=== PATIENT | female | born 1985 | race American Indian/Alaskan Native ===

== ENCOUNTER 2017-05-08 11:01 | Emergency (ER) | payer OTHER ==
[2017-05-08 11:31] VITALS: O2SAT 100; BMI 28.3
--- NOTE | 2017-05-08 11:46 | ED PDOC ---
Arrival/HPI - General Historian: Patient - General Chief Complaint: ENT Problem Time Seen by Provider: 05/08/17 11:21 - History of Present Illness Narrative History of Present Illness (Text): 05/08/17 11:42PM Patient is a 32 year old female with no past medical history who presents complaining of generalized symptoms of headache, abdominal discomfort, cough and fever. The patient is a poor historian and is noted to have selected cooperation throughout the interview. The patient reports developing a dry cough and sore throat for the past few days. She has had recent travel to [place] for vacation but denies any exposure to ticks, mosquitos or inesect bites. She does have sick contacts for which complain of the same symptoms of sore throat and mild cough. Pt does not report a productive cough. Patient indicates that she was previously seen at an urgent care prior to arrival in emergency department and had a recorded temperature of 102.4F. She denies fever or subjective fever through out her illness. Pt also complains of dizziness today but is only able to provide vague descriptors of her dizziness. She reports she gets dizzy when she stands up too quickly the past few days and denies any loss of consciousness or syncope. Pt denies chest pain, shortness of breath, chills, neck pain/stiffness and skin rash. (Piyush Lamb) Past Medical History - Provider Review Nursing Documentation Reviewed: Yes - Travel History Have you recently traveled outside [place] w/in the past 3 mons?: Yes If Yes, travel location?: [place] - Past History Past History: No Previous - Infectious Disease Hx of Infectious Diseases: None - Past Medical History Past Medical History: No Previous Family/Social History - Physician Review Nursing Documentation Reviewed: Yes Family/Social History: No Known Family HX Allergies/Home Meds Allergies/Adverse Reactions: Allergies amoxicillin Adverse Reaction (Verified 05/08/17 12:00) RASH morphine Adverse Reaction (Verified 05/08/17 11:59) VOMITING Home Medications: Home Meds Medication Instructions Recorded Confirmed Phenylephrine/Dm/Acetaminop/GG 05/08/17 [Vicks Dayquil Severe Cold-Flu] Review of Systems - Review of Systems Constitutional: Fevers. absent: Weight Change Eyes: Photophobia (chronic) ENT: absent: Hearing Changes, Tinnitus Respiratory: Cough. absent: SOB, Wheezing Cardiovascular: absent: Chest Pain, Palpitations Gastrointestinal: Diarrhea (x 2 days). absent: Abdominal Pain Genitourinary Female: absent: Dysuria, Frequency Musculoskeletal: Myalgias Skin: Normal Endocrine: Diaphoresis. absent: Polyuria Psychiatric: absent: Anxiety, Depression Physical Exam Vital Signs Reviewed: Yes Temperature: Afebrile Blood Pressure: Normal Pulse: Regular Respiratory Rate: Normal Appearance: Positive for: Well-Appearing Pain Distress: None Mental Status: Positive for: Alert and Oriented X 3 - Systems Exam Head: Present: Atraumatic, Normocephalic Pupils: Present: PERRL Extroacular Muscles: Present: EOMI Conjunctiva: Present: Normal Mouth: Present: Moist Mucous Membranes Pharnyx: Present: ERYTHEMA. No: EXUDATE, Peritonsilar Swelling Neck: Present: Normal Range of Motion, Paraspinal Tenderness. No: Meningeal Signs, MIDLINE TENDERNESS Respiratory/Chest: Present: Clear to Auscultation, Good Air Exchange. No: Respiratory Distress, Accessory Muscle Use Cardiovascular: Present: Regular Rate and Rhythm, Normal S1, S2. No: Murmurs Abdomen: Present: Tenderness (diffuse minimal), Normal Bowel Sounds. No: Distention, Peritoneal Signs Upper Extremity: Present: Normal Inspection. No: Cyanosis, Edema Lower Extremity: Present: Normal Inspection. No: Edema Neurological: Present: GCS=15, CN II-XII Intact, Speech Normal Skin: Present: Warm, Dry, Normal Color, Diaphoretic. No: Rashes Psychiatric: Present: Alert, Oriented x 3, Normal Insight, Normal Concentration Medical Decision Making - Lab Interpretations I have reviewed the lab results: Yes - EKG Interpretation Interpreted by ED Physician: Yes Type: 12 lead EKG ED Course and Treatment: 05/08/17 13:32 Impression: - Patient is a 32 year old female with no past medical history who complains of sore throat, headache, and fever for the past 5 days. Differential Diagnosis included but are not limited to: - Viral URI - Migraine Plan: - CBC, CMP, Urinalysis, Test - EKG - Motrin, Meclizine, IVF - Reassess and disposition Progress Notes: Piyush Lebron) - Lab Interpretations Lab Results: 05/08/17 12:30 05/08/17 12:30 Lab Results 05/08/17 13:10: Urine Color Yellow, Urine Appearance Clear, Urine pH 7.5, Ur Specific [place] 1.015, Urine Protein Negative, Urine Glucose (UA) Negative, Urine Ketones Negative, Urine Blood Negative, Urine Nitrate Negative, Urine Bilirubin Negative, Urine Urobilinogen 0.2, Ur Leukocyte Esterase Negative 05/08/17 12:30: Sodium 135, Potassium 3.8, Chloride 100, Carbon Dioxide 26, Anion Gap 13, BUN 8, Creatinine 0.8, Est GFR ( Amer) > 60, Est GFR (Non- Af Amer) > 60, Random Glucose 89, Calcium 9.4, Total Bilirubin 0.8, AST 47 H, ALT 70 H, Alkaline Phosphatase 94, Total Protein 8.3, Albumin 4.4, Globulin 3.9 , Albumin/Globulin Ratio 1.1, Lipase 43 05/08/17 12:30: WBC 6.3, RBC 4.43, Hgb 13.0, Hct 39.4, MCV 88.9, MCH 29.3, MCHC 33.0, RDW 13.0, Plt Count 262, MPV 9.3, Gran % 79.5 H, Lymph % (Auto) 10.1 L, [place] % (Auto) 10.0 H, Eos % (Auto) 0.2 L, Baso % (Auto) 0.2, Gran # 5.02, Lymph # 0.6 L, [place] # 0.6, Eos # 0.0, Baso # 0.01 - Medication Orders Current Medication Orders: Discontinued Medications Sodium Chloride (Sodium Chloride 0.9%) 1,000 mls @ 250 mls/hr IV .Q4H ONE Stop: 05/08/17 16:09 Last Admin: 05/08/17 12:54 Dose: 250 mls/hr Ibuprofen (Motrin Tab) 600 mg PO STAT STA Stop: 05/08/17 12:04 Last Admin: 05/08/17 12:56 Dose: 600 mg Meclizine HCl (Antivert) 25 mg PO STAT STA Stop: 05/08/17 12:11 Last Admin: 05/08/17 12:30 Dose: 25 mg - PA / BILINGUAL RECRUITER / Resident Statement / has reviewed & agrees with the documentation as recorded. / has examined the patient and agrees with the treatment plan. Disposition/Present on Arrival - Present on Arrival Any Indicators Present on Arrival: No History of DVT/PE: No History of Uncontrolled Diabetes: No Urinary Catheter: No History of Decub. Ulcer: No - Disposition Have Diagnosis and Disposition been Completed?: Yes Disposition Time: 13:40 Patient Plan: Discharge - Disposition Diagnosis: Viral upper respiratory illness Disposition: HOME/ ROUTINE Condition: GOOD Prescriptions: Benzonatate [Tessalon Perles] 100 mg PO TID #15 sgl Referrals: Dalia Hampton, [Primary Care Provider] - Follow up with primary Forms: WORK NOTE
[2017-05-08] MEDS ORDERED: Sodium Chloride 0.9% 1,000 ML IV ONE (12:10)
[2017-05-08 12:48] LABS: BASO # 0.01 K/mm3 (0.0-2.0); BASO % 0.2 % (0.0-3.0); EOS % 0.2 % (1.5-5.0); GRAN # 5.02 (1.4-6.5); GRAN % 79.5 % (50.0-68.0); LYMPH # 0.6 (1.2-3.4); LYMPH % 10.1 % (22.0-35.0); MEAN CELL VOLUME 88.9 fL (80.0-105.0); MEAN CORPUSCULAR HEMOGLOBIN 29.3 pg (25.0-35.0); MEAN PLATELET VOLUME 9.3 fl (7.0-11.0); MONO # 0.6 (0.1-0.6); PLATELET COUNT 262 10^3/uL (120.0-450.0); RBC 4.43 10^6/uL (3.5-6.1); WHITE BLOOD COUNT 6.3 10^3/ul (4.5-11.0)
[2017-05-08 12:57] LABS: ALB/GLOB RATIO 1.1 (1.1-1.8); ALBUMIN 4.4 g/dL (3.0-4.8); ALT/SGPT 70 U/L (7-56); AST/SGOT 47 U/L (15-39); BLOOD UREA NITROGEN 8 mg/dL (7-21); CALCIUM 9.4 mg/dL (8.4-10.5); GFR AFRICAN-AMERICAN > 60; GFR NON-AFRICAN AMERICAN > 60; LIPASE 43 U/L (23-300)
[2017-05-08 13:18] LABS: PH,URINE 7.5 (4.7-8.0); URINE BILIRUBIN NEGATIVE (NEGATIVE); URINE BLOOD NEGATIVE (NEGATIVE); URINE GLUCOSE (UA) NEGATIVE (NEGATIVE); URINE LEUKOCYTE ESTERASE NEGATIVE Leu/uL (NEGATIVE); URINE NITRATE NEGATIVE (NEGATIVE); URINE PROTEIN NEGATIVE mg/dL (<30 mg/dL); URINE UROBILINOGEN 0.2 E.U./dL (<1 E.U./dL)
[2017-05-08 13:19] LABS: URINE APPEARANCE CLEAR (CLEAR); URINE COLOR YELLOW (YELLOW)
[2017-05-08 17:23] VITALS: BP 136/67; PULSE 68; RESP 17; TEMP 98.8
--- NOTE | 2017-05-08 17:25 | CARD ---
APPROVED REPORT EKG Measurement Heart [id number] <Conclusion> Normal sinus rhythm Septal infarct, age undetermined Abnormal ECG
== END 2017-05-08 13:50 | disposition home or self-care (01) ==
LOC: ED 11:01
DX: J06.9 Acute upper respiratory infection, unspecified (principal)
CPT/HCPCS: 80053; 81003; 83690; 85025; 93005; 99283; J7040

== ENCOUNTER 2018-06-07 18:21 | Emergency (ER) | payer OTHER ==
[2018-06-07 18:21] VITALS: BMI 28.3
[2018-06-07 18:37] VITALS: RESP 16
--- NOTE | 2018-06-07 19:41 | ED PDOC ---
Arrival/HPI - General Chief Complaint: Lower Extremity Problem/Injury Time Seen by Provider: 06/07/18 19:18 Historian: Patient - History of Present Illness Narrative History of Present Illness (Text): 06/07/18 19:52 33 year old female, with no significant past medical history, presents with right foot pain, status post injury 3 days ago. Patient states she was walking and turned quickly, twisting her right foot and sustaining injury over the great toe. Patient states for past few days she has been walking on the foot but complaining of continued pain along the dorsal aspect of foot at the great toe. Patient denies numbness, weakness or tingling in the extremities. Patient took motrin for pain with some improvement. Patient denies ankle pain, calf pain or any other complaints. Time/Duration: < week (3 days prior) Symptom Onset: Sudden Symptom Course: Unchanged Past Medical History - Provider Review Nursing Documentation Reviewed: Yes - Past History Past History: No Previous - Infectious Disease Hx of Infectious Diseases: None - Past Medical History Past Medical History: No Previous - Psychiatric Hx Substance Use: No Family/Social History - Physician Review Nursing Documentation Reviewed: Yes Family/Social History: No Known Family HX Smoking Status: Current Some Days Smoker Hx Alcohol Use: Yes Frequency of alcohol use: Socially Hx Substance Use: No Allergies/Home Meds Allergies/Adverse Reactions: Allergies amoxicillin Adverse Reaction (Verified 06/07/18 18:50) RASH morphine Adverse Reaction (Verified 06/07/18 18:50) VOMITING Review of Systems - Physician Review All systems were reviewed & negative as marked: Yes - Review of Systems Constitutional: Normal Eyes: Normal ENT: Normal Respiratory: Normal Cardiovascular: Normal Gastrointestinal: Normal Genitourinary Female: Normal Musculoskeletal: Myalgias, Other (pain to right great toe) Skin: Normal Neurological: Normal Endocrine: Normal Hemo/Lymphatic: Normal Psychiatric: Normal Physical Exam Vital Signs Reviewed: Yes Vital Signs Temp Pulse Resp BP Pulse Ox 06/07/18 18:35 98.6 F 71 16 121/59 L 98 Temperature: Afebrile Blood Pressure: Normal Pulse: Regular Respiratory Rate: Normal Appearance: Positive for: Well-Appearing, Non-Toxic, Comfortable Pain Distress: None Mental Status: Positive for: Alert and Oriented X 3 - Systems Exam Head: Present: Atraumatic Mouth: Present: Moist Mucous Membranes Neck: Present: Normal Range of Motion Respiratory/Chest: Present: Clear to Auscultation, Good Air Exchange. No: Respiratory Distress, Accessory Muscle Use Cardiovascular: Present: Regular Rate and Rhythm, Normal S1, S2. No: Murmurs Abdomen: No: Tenderness, Distention, Peritoneal Signs Upper Extremity: Present: Normal Inspection Lower Extremity: Present: NORMAL PULSES (distal pulses intact), Normal ROM, Tenderness (Right foot: + tenderness over 1st MTP; no edema, no erythema; no ecchymosis; no malleolar tenderness or edema, no achilles tendon tenderness. sensation and distal pulses intact), Neurovascularly Intact, Capillary Refill < 2 s. No: Edema, CALF TENDERNESS, Erythema Neurological: Present: GCS=15, Speech Normal Skin: Present: Warm, Dry, Normal Color. No: Rashes Psychiatric: Present: Alert, Oriented x 3 Medical Decision Making ED Course and Treatment: 06/07/18 19:58 Patient nontoxic well-appearing in no distress with stable vital signs X-rays of the right foot; no fracture pt took motrin prior to arrival. tylenol given po Patient given crutches given for ambulation. pt has a compression norah brace that she has applied to her foot. I discussed all results in depth with the patient advised to followup with the orthopedist/project controls specialist within the next 2 days. Return if symptoms worsen persist or new symptoms develop Patient verbalizes understanding of discharge instructions and need for immediate followup. all aspects of this case were discussed the attending of record. Impression: foot pain Motrin every 6 hours as needed for pain Rest, ice, compression, elevation Use crutches for ambulation Followup with the orthopedist/project controls specialist within the next 2 days Followup with primary care physician within the next 2 days Return if symptoms worsen persist or if new symptoms develop 06/07/18 20:10 - RAD Interpretation Radiology Orders: 06/07/18 19:18 FOOT RIGHT 3 VIEWS ROUTINE [RAD] Stat - Medication Orders Current Medication Orders: Discontinued Medications Acetaminophen (Tylenol 325mg Tab) 975 mg PO STAT STA Stop: 06/07/18 19:19 Disposition/Present on Arrival - Present on Arrival Any Indicators Present on Arrival: No History of DVT/PE: No History of Uncontrolled Diabetes: No Urinary Catheter: No History of Decub. Ulcer: No History Surgical Site Infection Following: None - Disposition Have Diagnosis and Disposition been Completed?: Yes Diagnosis: Foot pain Disposition: HOME/ ROUTINE Disposition Time: 20:01 Patient Plan: Discharge Condition: GOOD Discharge Instructions (ExitCare): Muscle and Bone Pain (DC) Additional Instructions: Motrin every 6 hours as needed for pain Rest, ice, compression, elevation Use crutches for ambulation Followup with the orthopedist/project controls specialist within the next 2 days Followup with primary care physician within the next 2 days Return if symptoms worsen persist or if new symptoms develop Prescriptions: Ibuprofen [Motrin] 600 mg PO Q6H PRN #20 tab PRN Reason: pain/fever reduction Referrals: Arian Warner DPM [Staff Provider] - Follow up with primary Stoney Diaz MD [Staff Provider] - Follow up with primary Valorie Shaw MD [Medical Doctor] - Follow up with primary [facility] [Outside] - Follow up with primary [facility] [Outside] - Follow up with primary Forms: [employer] (E[place]an), WORK NOTE
[2018-06-07 22:07] VITALS: BP 124/62; PULSE 68; TEMP 98.5; O2SAT 99
--- NOTE | 2018-06-08 10:42 | RAD ---
Date of service: 06/07/2018 PROCEDURE: Right Foot Radiographs. HISTORY: twisted foot, pain to 1st MCP COMPARISON: None. FINDINGS: BONES: Bone alignment and mineralization are normal. There is no acute displaced fracture or bone destruction. JOINTS: Normal. SOFT TISSUES: Normal. OTHER FINDINGS: None. IMPRESSION: No acute fracture or dislocation.
== END 2018-06-07 20:15 | disposition home or self-care (01) ==
LOC: ED 18:21
DX: M79.671 Pain in right foot (principal)